=== PATIENT | male | born 1960 | race Caucasian/White ===

== ENCOUNTER 2023-01-08 06:41 | Emergency (ER) | payer OTHER, SELFPAY ==
[2023-01-08] VITALS (26 sets, daily range): BP systolic 89–120; BP diastolic 52–73; PULSE 49–75; RESP 12–25; O2SAT 92–100; BMI 25.8
--- NOTE | 2023-01-08 07:16 | ED_ITS ---
HPI - Syncope General Chief Complaint: Syncope Stated Complaint: Syncope Time Seen by Provider: 01/08/23 07:03 Source: patient and family Mode of arrival: walk-in History of Present Illness HPI narrative: patient here complaining of a syncopal episode. He states over the weekend he probably didn't drink enough fluids. He was started on Flomax recently for prostatic hypertrophy. Today when he got up to go the restroom 1st thing this morning he felt a little woozy and lightheaded when he went to the restroom. He came back and laid down and fell forward and his himself on the dresser. His says that he can lay back for a while and just didn't feel very good got diaphoretic. There is not a total loss of consciousness but he was kind of dazed for several minutes. He did not have any chest pain or discomfort. He did not have any palpitations and has not had a previous cardiac history. He had a stress test heart catheter many years ago but has not been recent. He's not on a blood pressure meds. He feels better at this time. He did not describe any vertigo-type symptoms. He's not known to have a carotid artery disease. He has no history of heart murmur. Related Data Home Medications Medication Instructions Recorded Confirmed atorvastatin 10 mg tablet 10 mg PO DAILY 01/08/23 01/08/23 tamsulosin 0.4 mg capsule 0.4 mg PO DAILY 01/08/23 01/08/23 Allergies Allergy/AdvReac Type Severity Reaction Status Date / Time No Known Drug Allergies Allergy Verified 01/08/23 06:52 [facility] Social History Smoking status: Never smoker Exam Narrative Exam Narrative: GENERAL: Well hydrated, appears well, No obvious distress, Awake, Alert, Oriented x 3, Cognition intact HEENT: Normocephalic, No evidence of trauma, injury or infection, airway intact. Conjuntiva normal, no pallor or scleral icterus NECK: Supple, no meningeal irritation, full ROM, non-tender, No JVD. No tenderness to palpation over the cervical spine.no carotid bruits CHEST: Symmetrical, no injury, non-tender, RESP: lungs are clear there is no chest wall sternal or clavicular tenderness to palpation. CARDIO: Normal rate and rhythm, No murmur, Rub, or ectopy during auscultation. ABD: Non-tender, normal BS, no guarding, rebound or rigidity. No pulsatile, masses. No organomegaly NEURO: Neuro at baseline, No motor deficits, CN 2-12 Normal, Mentation inctact. EXTREMITIES: No edema, good tissue perfusion, SKIN: No petechiae, purpura, or abnormal bruising, warm, dry, no rash Constitutional Vital Signs, click to edit/add: Last Vital Signs Pulse 51 L 01/08/23 07:00 Resp 15 01/08/23 07:00 BP 102/62 01/08/23 06:58 Pulse Ox 97 01/08/23 07:00 O2 Del Method Room Air 01/08/23 06:44 Course Vital Signs Vital signs: Vital Signs Pulse Rate 53 L 01/08/23 06:44 Respiratory Rate 19 01/08/23 06:44 Blood Pressure 102/52 01/08/23 06:44 Pulse Oximetry 95 01/08/23 06:44 Oxygen Delivery Method Room Air 01/08/23 06:44 Pulse Rate 51 L 01/08/23 07:00 Respiratory Rate 15 01/08/23 07:00 Blood Pressure 102/62 01/08/23 06:58 Pulse Oximetry 97 01/08/23 07:00 Oxygen Delivery Method Room Air 01/08/23 06:44 MDM - Syncope MDM Narrative Medical decision making narrative: this patient's symptoms are most consistent with orthostatic hypotension this morning. His blood pressure has improved with a liter of fluids. He'll be encouraged to take more fluids. He will have to discuss with his physicians whether not he should continue the Flomax which may be contributing to the problem. Discharge Plan Discharge Chief Complaint: Syncope Clinical Impression: Near syncope Patient Disposition: Home, Self-Care Time of Disposition Decision: 08:49 Prescriptions / Home Meds: No Action atorvastatin 10 mg tablet 10 mg PO DAILY tamsulosin 0.4 mg capsule 0.4 mg PO DAILY Additional Instructions: drink additional fluids, discuss your medication with her family doctor or urologist Stand Alone Forms: Portal Instructions Referrals: Physician,Non-Staff, MD [Primary Care Provider] - 1 week
--- NOTE | 2023-01-08 07:19 | ECG_ITS ---
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
--- NOTE | 2023-01-08 07:20 | XR_ITS ---
[facility] [place] [id number] Patient Name: BELTRAN QUIROZ MRN: [id number] date: 1960 Sex: M Assigned Patient Location: ER Current Patient Location: ER Accession/Order Number: [id number] Exam Date: 01/08/2023 07:50 Report Date: 01/08/2023 08:31 At the request of: KAYLENE BROOKE Procedure: XR chest 2V XR chest 2V, 01/08/2023 7:50 AM EDT, [facility]001 INDICATION: syncope COMPARISON: None TECHNIQUE: Frontal and lateral views of the chest obtained. FINDINGS: The heart is normal in size. The aorta and mediastinum appear unremarkable. The pulmonary vasculature is normal. There are multiple tiny dense pulmonary nodules bilaterally most likely representing calcified granulomas. No acute infiltrate is seen. There is no evidence of pneumothorax or pleural effusion. The osseous structures appear intact. XR/XR chest 2V IMPRESSION: No active pulmonary process. Electronically authenticated by: MARINE FERNANDEZ Date: 01/08/2023 08:31
[2023-01-08] MEDS: 0.9 % SODIUM CHLORIDE 1,000 ML 999 ML IV (07:30)
[2023-01-08 07:44] LABS: Alanine Aminotransferase 31 U/L (16-63); Albumin Globulin Ratio 1.1; Albumin Level 3.5 g/dL (3.4-5.0); Alkaline Phosphatase 78 U/L (46-116); Aspartate Amino Transferase 21 U/L (15-37); BUN Creatinine Ratio 11.7; Bilirubin Total 0.5 mg/dL (0.2-1.0); Calcium 8.7 mg/dL (8.5-10.1); Carbon Dioxide 29.1 mmol/L (21.0-32.0); Chloride 105 mmol/L (98-107); Estimated GFR (African America >60 (>=60); Estimated GFR (Non-African Ame >60 (>=60); Globulin 3.1 g/dL; Glucose 140 mg/dL (74-106); Potassium 4.1 mmol/L (3.5-5.1); Sodium 140 mmol/L (136-145); Total Protein 6.6 g/dL (6.4-8.2)
[2023-01-08 07:45] LABS: Troponin I High Sensitivity 4.5 pg/mL (4.0-76.1)
[2023-01-08 07:45] LABS: Basophils Percent Auto 0.6 % (0.2-2.0); Eosinophils Absolute Auto 0.3 10^3/uL (0.0-0.7); Eosinophils Percent Auto 5.2 % (0.9-7.0); Hematocrit 43.7 % (42.0-54.0); Hemoglobin 14.4 g/dL (14.0-18.0); Immature Granulocytes Abs Auto 0.02 10^3/uL (0.00-0.03); Immature Granulocytes Pct Auto 0.4 % (0.0-0.5); Mean Corpuscular Hemoglobin 30.1 pg (25.9-34.0); Mean Corpuscular Volume 91.2 fL (80.0-94.0); Mean Platelet Volume 11.7 fL (9.5-13.5); Monocytes Absolute Auto 0.6 10^3/uL (0.3-0.8); Monocytes Percent Auto 11.2 % (1.7-12.0); Neutrophils Absolute Auto 3.4 10^3/uL (1.4-6.5); Neutrophils Percent Auto 63.6 % (43.0-75.0); Platelet Count 144 10^3/uL (150-450); Red Blood Count 4.79 10^6/uL (4.70-6.10); Red Cell Distribution Width 12.3 % (11.0-15.0); White Blood Count 5.4 10^3/uL (4.0-11.0)
[2023-01-08 07:46] LABS: Lactate/Lactic Acid 1.2 mmol/L (0.4-2.0)
[2023-01-08 09:30] LABS: Bilirubin Urine NEGATIVE (NEGATIVE); Blood Urine TRACE-I (NEGATIVE); Clarity Urine CLEAR (CLEAR); Color Urine YELLOW (YELLOW); Glucose Urine UA NEGATIVE (NEGATIVE); Ketones Urine NEGATIVE (NEGATIVE); Leukocyte Esterase Urine NEGATIVE (NEGATIVE); Nitrite Urine NEGATIVE (NEGATIVE); Protein Urine NEGATIVE (NEG/TRACE); Specific Gravity Urine 1.015 (1.005-1.025); pH Urine 7.5 (5.0-9.0)
[2023-01-08 09:33] LABS: Urine Microscopic Indicated NO
== END 2023-01-08 09:02 | disposition home or self-care (01) ==
PROVIDERS: Emergency Provider Emergency Medicine Emergency Medical Services
DX: R55 Syncope and collapse (principal); N40.0 Benign prostatic hyperplasia without lower urinary tract symptoms; Z79.899 Other long term (current) drug therapy
CPT/HCPCS: 36415; 71046; 80053; 81003; 83605; 84484; 85025; 93005; 96360; 99285